=== PATIENT | female | born 1955 | race Caucasian/White ===

== ENCOUNTER 2016-11-19 05:20 | Emergency (ER) | payer MEDICARE ==
[2016-11-19 05:20] VITALS: BMI 56.5
--- NOTE | 2016-11-19 05:38 | EDPRACDOC ---
- General Information Stated Complaint: FLU LIKE SYMPTOMS Time Seen by Provider: 11/19/16 05:36 Home Medications: Home Medications Aspirin 325 mg PO DAILY 10/23/13 Furosemide 40 mg PO DAILY 12/23/13 Isosorbide Mononitrate [Isosorbide Mononitrate ER] 30 mg PO DAILY 12/23/13 Potassium Chloride [Klor-Con M10] 10 meq PO DAILY 12/23/13 Pravastatin [Pravachol] 80 mg PO HS 12/23/13 Valsartan/Hydrochlorothiazide [Valsartan-Hctz 320-12.5 mg Tab] 1 each PO DAILY 12/23/13 Cyanocobalamin (Vitamin B-12) [B-12] 2,500 mcg SL DAILY 12/24/14 Escitalopram Oxalate [Lexapro] 10 mg PO DAILY 12/24/14 Metoprolol Tartrate [Lopressor] 25 mg PO BID 12/24/14 Albuterol/Ipratropium Neb [Duoneb] 3 ml NEB RTQ6 #120 nebu 01/30/15 Home Nebulizer Needed [Patient Needs Nebulizer For Home Use] 1 item NEB DIR # 1 misc 01/30/15 Nitroglycerin Sublingual Tab [NTG (NitroStat Sublingual Tab)] 0.4 mg SL .Q5M X 3 PRN 09/21/15 Acetaminophen with Codeine [Acetaminophen-Cod #3 Tablet] 1 tab PO Q6-8H PRN #14 tablet 05/28/16 Meloxicam [Mobic] 15 mg PO DAILY 05/28/16 Guaifenesin-Codeine [Robitussin AC] 10 ml PO Q6-8H 5 Days 11/19/16 Oseltamivir Phosphate [Tamiflu] 75 mg PO BID #10 capsule 11/19/16 Allergies/Adverse Reactions: Allergies Allergy/AdvReac Type Severity Reaction Status Date / Time hydrocodone bitartrate Allergy Nausea/Vomi Verified 05/28/16 07:35 [From Vicodin] ting ibuprofen Allergy Hives* Verified 05/28/16 07:35 lisinopril [From Zestril] Allergy Cough Verified 05/28/16 07:35 nifedipine [From Procardia] Allergy Rash-Genera Verified 05/28/16 07:35 lized oxycodone [Oxycodone] Allergy Nausea/Vomi Verified 05/28/16 07:35 ting - History of Present Illness Symptoms: Reports: Cough Recent Medications: Reports: None Relevant History Of: Reports: Other (THOM) Cough Frequency: Intermittent Cough Description: Reports: Non-productive Rhinorrhea: Reports: Clear Ear Symptoms: Reports: None Associated Signs and Symptoms: Reports: Cough Other History: NEG STRESS NOV 2013; ED Past Medical History - History Reviewed Yes Nurses notes reviewed and agree except as marked - Patient Medical History Cardiac History: Reports: Coronary Artery Disease, Hypertension, Congestive Heart Failure, Heart Attack (X2), Hypercholesterolemia Respiratory History: Reports: Asthma, COPD Psychological History: Reports: Depression. Denies: Substance Use Disorder Systemic History: Denies: Diabetes, Hypothyroidism Surgical History: Reports: Other (History of ankle surgery and .) - Family Medical History Reports: Hypertension, Cardiac Disorders - Social Medical History Smoking Status: Heavy tobacco smoker (5 or more cigarettes/day or daily pipe/ cigar) Social History: Denies: Substance Use Disorder EDM Review of Systems - Review of Systems ROS Negative Except as Marked: Yes All systems reviewed and were negative except as marked - Physical Exam Constitutional: Alert (Awake), No apparent distress Oriented to: Time, Person, Place Last recorded Vital Signs: Oxygen Pulse Oxygen Saturation O2 Device Oxygen Flow Rate Fraction of Inspired Oxygen ( FIO2) - HEENT Head: Normal ( normocephalic) Eye Exam: Normal (PERRL, EOMI, Sclera white) Oropharynx: Normal (Pharynx:Moist without exudate,Gums-no swelling) TMJ: Normal Nose: No Symptoms Reported (septum midline) Neck: Normal (FROM, trachea at midline) - Respiratory/Cardiovascular Respiratory: Normal - CTA (BBS clear to auscultation without adventitious sounds ) Cardiovascular: Normal (RRR without murmur, gallop or rub) - GI Auscultation: Normal (NABS) Palpation: Normal (Soft,No rebound or guarding, non distended) Tenderness: Non tender Wilde's Sign: Negative - Musculoskeletal Back: Normal (Non-Tender) Extremities: Normal (Normal tone, Pulses 2+ No cyanosis or edema, FROM) - Integumentary Skin: Normal, Warm, Dry Lymphatics: Normal (no adenopathy) - Neurologic Memory Impaired: Normal Motor Function: Normal (Normal tone, Pulses 2+ No cyanosis or edema, FROM) Cranial Nerve: Normal (CN II-X11 intact sensation, strength 5/5) Cerebellar: Normal Mood Description: Normal Perception: Normal Decision Time to Discharge: 05:55 - Departure Yes I personally saw and evaluated the patient. Disposition: Home Condition: Good Final Diagnosis: VIRAL SYNDROME Instructions: Viral Syndrome (ED) Education/Counseling Given To: Patient Education/Counseling Given Regarding: Diagnosis, Treatment, Prognosis Referrals: Marc Burgos II, MD [Primary Care Provider] - One Week Prescriptions: Guaifenesin-Codeine [Robitussin AC] 10 ml PO Q6-8H 5 Days Oseltamivir Phosphate [Tamiflu] 75 mg PO BID #10 capsule
[2016-11-19 05:43] VITALS: TEMP 98.9
[2016-11-19 05:54] VITALS: BP 158/69; PULSE 85
== END 2016-11-19 05:53 | disposition home or self-care (01) ==
LOC: ED 05:20
DX: B34.9 Viral infection, unspecified (principal)
CPT/HCPCS: 99283